=== PATIENT | female | born 1995 | race Caucasian/White ===

== ENCOUNTER → 2021-11-28 | Outpatient (CLI) | payer OTHER ==
[~2021-11-28] MED LIST: MACROBID 100 M100 MG PO
== END ==
LOC: MRI 08:48
DX: H53.9 Unspecified visual disturbance (principal)
CPT/HCPCS: 70553; A9577

== ENCOUNTER 2022-03-27 18:57 | Observation (INO) | payer BC, OTHER | END 2022-03-28 09:38 | disposition home or self-care (01) | LOC: OB 18:57 → GENOP 18:57 → OB 03-28 02:26 → GENOP 03-28 02:26 → OB 03-28 09:38 → GENOP 03-28 09:38 → OB 03-28 09:38 → EDSTATUS 03-28 13:03 | PROVIDERS: ADMIT Obstetrics & Gynecology | DX: O47.02 False labor before 37 completed weeks of gestation, second trimester (principal); O30.042 Twin pregnancy, dichorionic/diamniotic, second trimester; Z3A.24 24 weeks gestation of pregnancy | CPT/HCPCS: 59025; 96372; G0378; G0379; J0702 ==

== ENCOUNTER 2022-05-15 15:58 | Outpatient (CLI) | payer BC, OTHER | END 2022-05-15 21:59 | disposition home or self-care (01) | LOC: GENOP 15:58 | DX: O47.02 False labor before 37 completed weeks of gestation, second trimester (principal); Z3A.24 24 weeks gestation of pregnancy | CPT/HCPCS: 96360; 96361; 96372; J3105; J7120 ==

== ENCOUNTER 2022-06-06 11:48 | Outpatient (CLI) | payer BC, OTHER ==
[2022-06-06 13:29] LABS: RED BLOOD COUNT 3.2 M/UL (4.00-5.10); WHITE BLOOD COUNT 11.9 K/UL (4.5-11.0)
== END 2022-06-06 13:50 | disposition other institution (70) ==
LOC: GENOP 11:48
PROVIDERS: Obstetrics & Gynecology
DX: O99.891 Other specified diseases and conditions complicating pregnancy (principal); R10.9 Unspecified abdominal pain; Z3A.24 24 weeks gestation of pregnancy
CPT/HCPCS: 81001; 85025; 96360; 96367; 96372; J3105